=== PATIENT | male | born 1975 | race American Indian/Alaskan Native ===

== ENCOUNTER 2018-05-10 14:00 | Emergency (ER) | payer OTHER ==
[2018-05-10 14:41] VITALS: TEMP 98.4
--- NOTE | 2018-05-10 15:43 | C.PDOC ---
History Of Present Illness 43 year old male, with no significant past medical history, presents to the ED for evaluation of feeling febrile, generalized body aches and runny nose which began around 3 days ago. Patient was evaluated in [facility] and had a negative flu swab. Patient presents to the ED today because his fever and body aches have persisted. Patient denies headache, nausea, vomiting, abdominal pain and chills. HPI: Influenza Time Seen by Provider: 05/10/18 15:01 Chief Complaint: Flu-like Symptoms History Per: Patient Exam Limitations: no limitations Past Medical History Reviewed: Historical Data, Nursing Documentation, Vital Signs Vital Signs: Last Vital Signs Temp 98.4 F 05/10/18 14:37 Pulse 91 H 05/10/18 14:37 Resp 18 05/10/18 14:37 BP 161/108 H 05/10/18 14:37 Pulse Ox 99 05/10/18 14:37 - Medical History PMH: HTN Surgical History: Appendectomy Family History: States: Unknown Family Hx - Social History Hx Alcohol Use: Yes Hx Substance Use: No - Immunization History Hx Tetanus Toxoid Vaccination: Yes Hx Influenza Vaccination: Yes Hx Pneumococcal Vaccination: No Review Of Systems Constitutional: Positive for: Fever. Negative for: Chills Gastrointestinal: Negative for: Nausea, Vomiting, Abdominal Pain Musculoskeletal: Positive for: Other (generalized body aches ) Neurological: Negative for: Headache Physical Exam - Physical Exam Appears: Non-toxic, No Acute Distress Skin: Normal Color, Warm, Dry Head: Atraumatic, Normacephalic Eye(s): bilateral: Normal Inspection Ear(s): Bilateral: Normal Nose: Normal, No Discharge Oral Mucosa: Moist Throat: Normal, No Erythema, No Exudate Neck: Supple Chest: Symmetrical, No Deformity, No Tenderness Cardiovascular: Rhythm Regular, No Murmur Respiratory: Normal Breath Sounds, No Rales, No Rhonchi, No Wheezing Extremity: Normal ROM, Capillary Refill (less than 2 seconds ) Neurological/Psych: Oriented x3, Normal Speech, Normal Cognition Medical Decision Making Medical Decision Making: Progress: Tylenol PO, Motrin PO and Tamiflu PO given. - ECG O2 Sat by Pulse Oximetry: 99 (on RA) Pulse Ox Interpretation: Normal Disposition Counseled Patient/Family Regarding: Diagnosis, Need For Followup, Rx Given - Disposition Referrals: [facility] [Outside] Disposition: HOME/ ROUTINE Disposition Time: 15:41 Condition: STABLE Additional Instructions: [facility] Prescriptions: Ibuprofen [Motrin] 600 mg PO TID #15 tab Oseltamivir Phosphate [Tamiflu] 75 mg PO BID #10 capsule Instructions: Influenza (ED) Forms: General Discharge Instructions, [facility] (French), Work Excuse - POA Present On Arrival: None - Clinical Impression Clinical Impression: Influenza-like illness - Scribe Statement The provider has reviewed the documentation as recorded by the Scribe (Katarina Shipley) Provider Attestation: All medical record entries made by the Scribe were at my direction and perso yash dictated by me. I have reviewed the chart and agree that the record accurately reflects my personal performance of the history, physical exam, medical decision making, and the department course for this patient. I have also personally directed, reviewed, and agree with the discharge instructions and disposition.
[2018-05-10 16:04] VITALS: BP 155/100; PULSE 75; RESP 20
[2018-05-10 19:58] VITALS: O2SAT 99
== END 2018-05-10 16:04 | disposition home or self-care (01) ==
LOC: C.ER 14:00
DX: J11.1 Influenza due to unidentified influenza virus with other respiratory manifestations (principal)